=== PATIENT | male | born 1945 | race African-American/Black ===

== ENCOUNTER 2020-10-04 21:18 | Inpatient (IN) | payer MEDICARE ==
[~2020-10-04] VITALS: Ht 175.3 cm; Wt 90.7 kg
[2020-10-04] MEDS ORDERED: ALBUTEROL/IPRATROPIUM 3 ML NEB NEB ONE (23:00)
[2020-10-04] MEDS ORDERED: ENOXAPARIN SODIUM INJ 100 MG/ML SYR SC SCH (23:15)
[2020-10-04] MEDS ORDERED: ALBUTEROL/IPRATROPIUM 3 ML NEB ONE (23:18)
[2020-10-04] MEDS ORDERED: METFORMIN HCL500 MG PO (23:32)
[2020-10-04] MEDS ORDERED: ACULAR5 ML OD (23:32)
[2020-10-04] MEDS ORDERED: ATIVAN0.5 MG PO (23:32)
[2020-10-04] MEDS ORDERED: DULERA 200 MCG/13 GM (23:32)
[2020-10-04] MEDS ORDERED: PROVENTIL HFA6.7 GM INH (23:32)
[2020-10-04] MEDS ORDERED: ULTRAM50 MG PO (23:32)
[2020-10-04] MEDS ORDERED: NASONEX17 GM (23:32)
[2020-10-04] MEDS ORDERED: AMLODIPINE BESY10 MG PO (23:32)
[2020-10-04] MEDS ORDERED: METOPROLOL TART50 MG PO (23:32)
[2020-10-04] MEDS ORDERED: BREO ELLIPTA 21 EACH INH (23:32)
[2020-10-04] MEDS ORDERED: LORATADINE10 MG PO (23:32)
[2020-10-04] MEDS ORDERED: XOPENEX0.63 MG/3 INH (23:32)
[2020-10-04] MEDS ORDERED: CLONIDINE HCL0.2 MG PO (23:32)
[2020-10-04] MEDS ORDERED: FLOMAX0.4 MG PO (23:32)
[2020-10-04] MEDS ORDERED: FINASTERIDE5 MG PO (23:32)
[2020-10-04] MEDS ORDERED: GLIPIZIDE5 MG PO (23:32)
[2020-10-04] MEDS ORDERED: MONTELUKAST SOD10 MG PO (23:32)
[2020-10-04] MEDS ORDERED: IPRATROPIU0.2 MG/1 M INH (23:32)
[2020-10-04] MEDS ORDERED: FAMOTIDINE20 MG PO (23:32)
[2020-10-04] MEDS ORDERED: TRIAMCINOLONE A15 G1 TOP (23:32)
[2020-10-04] MEDS ORDERED: DYMISTA NASAL S23 GM INH (23:32)
[2020-10-04] MEDS ORDERED: TRAZODONE HCL50 MG PO (23:32)
[2020-10-05] MEDS ORDERED: LORAZEPAM 1 MG TAB PO ONE (00:45)
[2020-10-05] MEDS ORDERED: ENOXAPARIN SODIUM INJ 100 MG/ML SYR SC SCH (01:00)
[2020-10-05] MEDS ORDERED: SODIUM CHLORIDE FLUSH 10 ML SYR INJ PRN (01:15)
[2020-10-05] MEDS ORDERED: LORAZEPAM 0.5 MG TAB ONE (01:15)
[2020-10-05] MEDS ORDERED: CEFTRIAXONE SOD 1 GM/NS 50 ML 50 ML IV ONE (01:15)
[2020-10-05] MEDS ORDERED: ONDANSETRON HCL INJ 2MG/ML 2ML 2 MG/ML VIAL IV PRN (01:15)
[2020-10-05] MEDS ORDERED: CEFTRIAXONE SOD 1 GM VIAL ONE (01:24)
[2020-10-05] MEDS ORDERED: SODIUM CHLORIDE 0.9% 100 ML ONE (01:24)
[2020-10-05] MEDS ORDERED: CEFTRIAXONE SOD 1 GM in SODIUM CHLORIDE 0.9% 50ML 50 ML IV ONE (01:30)
[2020-10-05 04:00] VITALS: BP 154/97
[2020-10-05 07:54] LABS: CREATINE KINASE MB 1.1 ng/mL (0-5.0)
== END 2020-10-05 08:24 | disposition left against medical advice (07) | DRG 313 ==
LOC: FSED 22:03 → ERHOLD 10-05 01:13 → MED/SURG3 10-05 03:56
PROVIDERS: ADMIT Internal Medicine; ATTEND Internal Medicine
DX: R07.9 Chest pain, unspecified (principal); N39.0 Urinary tract infection, site not specified; R05 Cough; I10 Essential (primary) hypertension; E11.9 Type 2 diabetes mellitus without complications; Z09 Encounter for follow-up examination after completed treatment for conditions other than malignant neoplasm; Z86.711 Personal history of pulmonary embolism; N28.9 Disorder of kidney and ureter, unspecified; J44.9 Chronic obstructive pulmonary disease, unspecified; Z88.2 Allergy status to sulfonamides; Z88.8 Allergy status to other drugs, medicaments and biological substances; Z88.1 Allergy status to other antibiotic agents; Z91.013 Allergy to seafood; Z20.822 Contact with and (suspected) exposure to COVID-19; Z79.84 Long term (current) use of oral hypoglycemic drugs
CPT/HCPCS: 36415; 71046; 82550; 82553; 84484; 93005; 99251; 99284; J0696; J1650; J7050; U0002